=== PATIENT | male | born 1980 | race Caucasian/White ===

== ENCOUNTER 2017-03-15 07:37 | Emergency (ER) | payer MEDICAID ==
[~2017-03-15] VITALS: Ht 157.5 cm; Wt 89.5 kg
[~2017-03-15 07:37] MED LIST: CIPR500T4 PO; CYCL-319 PO; IBUP-1542 PO; MAGN296S4 PO; METR500T14 PO; OMEP40CA6 PO
[2017-03-15 07:41] VITALS: Ht 157.5 cm; Wt 89.5 kg
[2017-03-15] MEDS ORDERED: SOD CHLORIDE 0.9% 1,000 ML IV STA (07:48)
[2017-03-15] MEDS ORDERED: ONDANSETRON 4 MG INJ IV STA (07:56)
[2017-03-15] MEDS ORDERED: KETOROLAC 30 MG INJ IV STA (07:56)
[2017-03-15] MEDS ORDERED: morphine 4 MG/ML VIAL IV STA (07:56)
--- NOTE | 2017-03-15 07:56 | ERD ---
ER Documentation Chief Complaint Date/Time DATE: 03/15/17 TIME: 07:54 Chief Complaint right upper abdominal pain since last night HPI This is a 36-year-old previously healthy male who presents to the emergency department complaining of sudden onset of right upper quadrant pain that awoke him from his sleep roughly 8 hours prior to arrival. The patient states the pain is a sharp shooting pain that radiates to the tip of his right scapula. There is no alleviating or exacerbating factors to the pain. He states he never had any similar pain in the past. He had one episode of nonbloody nonbilious emesis. He states the pain does not radiate to the lower abdomen or testicles. He has no fevers no shaking or chills. He denies any gross hematuria. Denies any recent remote blunt or penetrating trauma to the abdomen. He has no chest pain or pressure that radiates to the neck or back or jaw. ROS All systems reviewed and are negative except as per history of present illness. Medications Home Meds Active Scripts Omeprazole* (Omeprazole*) 40 Mg Capsule.dr, 40 MG PO DAILY, #30 CAP Prov:ANAND ALBERTS 10/02/15 Metronidazole* (Metronidazole*) 500 Mg Tablet, 500 MG PO BID, #14 TAB Prov:ANAND ALBERTS 10/02/15 Ciprofloxacin Hcl* (Ciprofloxacin Hcl*) 500 Mg Tablet, 500 MG PO BID for 7 Days , TAB Prov:ANAND ALBERTS 10/02/15 Magnesium Citrate (Citroma) 296 Ml Solution, 296 ML PO ONCE, #1 BOTTLE Prov:YING MONROY PA-C 08/28/15 Cyclobenzaprine Hcl* (Cyclobenzaprine Hcl*) 10 Mg Tablet, 10 MG PO Q8 Y for MUSCLE SPASMS, #20 TAB Prov:YING MONROY PA-C 08/28/15 Ibuprofen* (Motrin*) 600 Mg Tab, 600 MG PO Q6H Y for PAIN AND OR ELEVATED TEMP, #30 TAB Prov:YING MONROY PA-C 08/28/15 Allergies Allergies: Coded Allergies: Penicillins (Verified Allergy, Unknown, 08/28/15) PMhx/Soc History of Surgery: No Anesthesia Reaction: No Hx Neurological Disorder: No Hx Respiratory Disorders: No Hx Cardiac Disorders: No Hx Psychiatric Problems: No Hx Miscellaneous Medical Probl: No Hx Alcohol Use: No Hx Substance Use: No Hx Tobacco Use: No Physical Exam Vitals Vital Signs Date Time Temp Pulse Resp B/P Pulse Ox O2 Delivery O2 Flow Rate FiO2 03/15/17 07:41 97.4 73 18 111/68 97 Physical Exam Constitutional:Well-developed. Well-nourished. HEENT:Normocephalic. Atraumatic.Pupils were equal round reactive to light. Moist mucous membranes.No tonsillar exudates. Neck: No nuchal rigidity. No lymphadenopathy. No posterior cervical spine tenderness or step-offs. Respiratory: Not using accessory muscles of respiration.Lungs were clear to auscultation bilaterally. No rhonchi. No rales. No wheezing. Cardiovascular: Regular rate regular rhythm.No murmurs. No rubs were appreciated.S1, S2 normal. Distal pulses are palpable 2+ bilaterally. GI: Abdomen was soft. Right upper quadrant tenderness with negative Fowler sign and no tenderness in the right lower quadrant over McBurney's point. Psoas sign negative. Obturator sign negative. Non Distended. No pulsatile abdominal masses or bruits. No rebound. No guarding. Bowel sounds were present and normal. Muscle skeletal: Full range of motion of both the upper and lower extremities bilaterally.Normal muscle tone.No assymetrical calf tenderness or swelling. Skin: No petechia, no purpura. No lesions on the palms or the soles of the feet. No maculopapular rash. NEURO: Patient was alert, awake, orientated x3.No facial droop. Gait observed and normal with no ataxia.Speech had regular rate and rhythm. No focal neurological deficits. Result Diagram: 03/15/17 0755 03/15/17 0755 Results 24 hrs Laboratory Tests Test 03/15/17 07:55 White Blood Count 13.510^3/ul Red Blood Count 5.0910^6/ul Hemoglobin 15.5g/dl Hematocrit 47.7% Mean Corpuscular Volume 93.7fl Mean Corpuscular Hemoglobin 30.5pg Mean Corpuscular Hemoglobin Concent 32.5g/dl Red Cell Distribution Width 13.1% Platelet Count 94058^3/UL Mean Platelet Volume 10.7fl Neutrophils % 84.1% Lymphocytes % 10.7% Monocytes % 3.3% Eosinophils % 0.9% Basophils % 0.4% Nucleated Red Blood Cells % 0.0/100WBC Neutrophils # 11.310^3/ul Lymphocytes # 1.510^3/ul Monocytes # 0.510^3/ul Eosinophils # 0.110^3/ul Basophils # 0.110^3/ul Nucleated Red Blood Cells # 0.010^3/ul Prothrombin Time 12.4Sec Prothrombin Time Ratio 1.0 INR International Normalized Ratio 0.92 Activated Partial Thromboplast Time 27.1Sec Sodium Level 142mmol/L Potassium Level 4.4mmol/L Chloride Level 104mmol/L Carbon Dioxide Level 28mmol/L Anion Gap 14 Blood Urea Nitrogen 13mg/dl Creatinine 0.92mg/dl Glucose Level 144mg/dl Calcium Level 9.6mg/dl Total Bilirubin 0.2mg/dl Direct Bilirubin 0.00mg/dl Indirect Bilirubin 0.2mg/dl Aspartate Amino Transf (AST/SGOT) 40IU/L Alanine Aminotransferase (ALT/SGPT) 55IU/L Alkaline Phosphatase 102IU/L Total Protein 7.7g/dl Albumin 4.4g/dl Globulin 3.30g/dl Albumin/Globulin Ratio 1.33 Amylase Level 45U/L Lipase 78U/L Current Medications Medications (Trade) Dose Ordered Sig/Jason Route PRN Reason Start Time Stop Time Status Last Admin Dose Admin Sodium Chloride (NS) 1,000 ml @ 1,000 mls/hr Q1H STAT IV 03/15/17 07:48 03/15/17 08:47 DC 03/15/17 08:04 Morphine Sulfate (morphine) 4 mg ONCE STAT IV 03/15/17 07:56 03/15/17 07:57 DC 03/15/17 08:02 Ondansetron HCl (Zofran Inj) 4 mg ONCE STAT IV 03/15/17 07:56 03/15/17 07:57 DC 03/15/17 08:02 Ketorolac Tromethamine (Toradol) 30 mg ONCE STAT IV 03/15/17 07:56 03/15/17 07:57 DC 03/15/17 08:03 Procedures/[facility] The patient presented to the emergency department with right upper quadrant pain. My differential diagnosis included but was not limited to abdominal aortic aneurysm, choledocholithiasis, gallstone ileus, renal colic, pyelonephritis, pancreatitis, peptic ulcer disease, atypical myocardical infarction, mesenteric ischemia, GERD, pulmonary infarction. The patient was placed on a desk monitor, continuous pulse oximetry and IV access was established by nursing staff. The patient received intravenous morphine and Toradol for analgesia control An EKG was not obtained as the patient has no myocardial risk factors I did not feel his symptoms were result of atypical myocardial infarction. There was no elevation of LFTs to suggest ductal obstruction, cholangitis, cholecystiitis or hepatitis. Given that the urinalysis did not show bilirubinuria, my suspicion for common duct obstruction or hepatitis was low. I obtained an ultrasound of the patient's gallbladder which indicated the following reviewed by the radiologist and myself: Single mobile calcified stone within the gallbladder. Mild fatty infiltration of the liver. Small simple cyst in the right kidney. Did feel the patient's symptoms result of cholelithiasis without cholecystitis. His pain completely resolved and he was able to tolerate oral intake. He will be discharged home with analgesic medication was given instructions on diet for outpatient improvement of his symptoms improve biliary colic. The patient was discharged home in fair condition. They were instructed to return to the emergency department at any time if there was any worsening of their condition. The patient stated they would follow up with their PCP in the next 24 -48 hours to initiate a suitable medication regimen under the care of their PCP as well as to allow their PCP to monitor any drug reactions. The patient was discharged home with prescriptions after they gave informed consent to the new medication. They were also fully informed by myself on the adverse effects and adverse drug interactions in order to provide adequate safeguards to prevent possible adverse reactions to medications. Departure Diagnosis: Primary Impression: Cholelithiasis Cholelithiasis location: gallbladder Cholecystitis presence: without cholecystitis Biliary obstruction: without biliary obstruction Qualified Code : K80.20 - Calculus of gallbladder without cholecystitis without obstruction Condition: ANAND Ruiz Mar 15, 2017 07:56
[2017-03-15 08:25] LABS: BASOPHIL # 0.1 10^3/ul (0.0-0.1); BASOPHILS % 0.4 % (0.0-2.0); EOSINOPHILS # 0.1 10^3/ul (0.0-0.5); EOSINOPHILS % 0.9 % (0.0-7.0); HEMATOCRIT 47.7 % (42.0-52.0); HEMOGLOBIN 15.5 g/dl (14.0-18.0); LYMPHOCYTES # 1.5 10^3/ul (0.8-2.9); LYMPHOCYTES % 10.7 % (15.0-51.0); MEAN CORPUSCULAR HEMOGLOBIN 30.5 pg (29.0-33.0); MEAN CORPUSCULAR HGB CONC 32.5 g/dl (32.0-37.0); MEAN CORPUSCULAR VOLUME 93.7 fl (82.0-101.0); MEAN PLATELET VOLUME 10.7 fl (7.4-10.4); MONOCYTE # 0.5 10^3/ul (0.3-0.9); MONOCYTES % 3.3 % (0.0-11.0); NEUTROPHIL # 11.3 10^3/ul (1.6-7.5); NEUTROPHILS % 84.1 % (39.0-77.0); PLATELET COUNT 312 10^3/UL (140-415); RED BLOOD COUNT 5.09 10^6/ul (4.70-6.10); RED CELL DISTRIBUTION WIDTH 13.1 % (11.5-14.5); WHITE BLOOD COUNT 13.5 10^3/ul (4.8-10.8)
--- NOTE | 2017-03-15 08:35 | RADRPT ---
PROCEDURE: US Abdomen. CLINICAL INDICATION: abdominal pain TECHNIQUE: Multiple real-time images were acquired of the patient's right upper quadrant abdomen a nd retroperitoneum utilizing a high resolution transducer. COMPARISON: US ABDOMEN 08/28/2015 FINDINGS: The liver demonstrates slightly increased echogenicity. The liver is normal in size and no focal so lid lesions are seen. The liver measures 16.4 cm in length. The portal vein is patent with normal di rection of flow. No intrahepatic biliary dilatation is seen. There is a single 2.2 cm calcified stone within the gallbladder. There is no pericholecystic fluid or gallbladder wall thickening. The common bile duct measures 3 mm in maximal dimension. The visualized portions of the pancreas are unremarkable. The tail of the pancreas is not seen. No free fluid is identified. The right kidney is normal in size, and demonstrate normal echogenicity and cortical thickness. The right kidney measures 10.7 cm in long dimension. There is no evidence of hydronephrosis. There are no kidney stones. There is a 1.6 cm simple cyst in the right kidney. RPTAT: AA IMPRESSION: Single mobile calcified stone within the gallbladder. Mild fatty infiltration of the liver. Small simple cyst in the right kidney. .Rubén Paulson MD, MD Date Time Electronically viewed and signed by .Rubén Paulson MD, on 03/15/2017 08:35 .S/
[2017-03-15 08:41] LABS: INR 0.92; PROTIME 12.4 Sec (12.2-14.2)
[2017-03-15 08:42] LABS: PARTIAL THROMBOPLASTIN TIME 27.1 Sec (25.0-35.0)
[2017-03-15 08:46] LABS: ALBUMIN 4.4 g/dl (3.3-4.9); ALBUMIN/GLOBULIN RATIO 1.33; BILIRUBIN,INDIRECT 0.2 mg/dl (0-1.1); BILIRUBIN,TOTAL 0.2 mg/dl (0.2-1.3); CALCIUM 9.6 mg/dl (8.4-10.2); CREATININE 0.92 mg/dl (0.61-1.24); POTASSIUM 4.4 mmol/L (3.5-5.1); TOTAL PROTEIN 7.7 g/dl (6.1-8.1)
[2017-03-15] MEDS ORDERED: HYDR-906 PO (09:15)
[2017-03-15] MEDS ORDERED: IBUP800T25 PO (09:15)
[2017-03-15 09:35] VITALS: BP 110/76; PULSE 61; RESP 18; TEMP 97.9
== END 2017-03-15 09:35 | disposition home or self-care (01) ==
LOC: FTE 07:37
DX: K80.20 Calculus of gallbladder without cholecystitis without obstruction (principal)
CPT/HCPCS: 76705; 80053; 82150; 83690; 85025; 85610; 85730; 96361; 96374; 96375; J1885; J2270; J2405; J7030; Z7502